=== PATIENT | male | born 1945 | race Caucasian/White ===

== ENCOUNTER 2018-09-10 08:08 | Inpatient (IN) | payer MEDICARE, OTHER ==
[2018-09-02 16:03] LABS: BASOPHILS % (AUTO) 0.8 % (0-1); EOSINOPHILS # (AUTO) 0.2 X10'3 (0-0.9); EOSINOPHILS % (AUTO) 5.2 % (0-6); LYMPHOCYTES % (AUTO) 22.4 % (21-51); MEAN CORPUSCULAR HEMOGLOBIN 29.9 PG (27.0-31.0); MEAN CORPUSCULAR HGB CONC 33.2 % (33.0-36.5); MEAN PLATELET VOLUME 7.2 FL (7.4-10.4); MONOCYTES # (AUTO) 0.4 X10'3 (0-0.9); MONOCYTES % (AUTO) 10.1 % (2-12); NEUTROPHILS # (AUTO) 2.7 X10'3 (1.8-7.7); NEUTROPHILS % (AUTO) 61.5 % (42-75); PRE OP HEMATOCRIT 37.3 % (42.0-52.0); PRE OP HEMOGLOBIN 12.4 g/dL (14.0-17.9); PRE OP PLATELET COUNT 291 X10'3 (140-440); RED BLOOD COUNT 4.15 X10'6 (4.70-6.10); RED CELL DISTRIBUTION WIDTH 14.4 % (11.5-14.5)
[2018-09-02 16:13] LABS: ALBUMIN 3.8 G/DL (3.4-5.0); ALBUMIN/GLOBULIN RATIO 1.3 (1.1-1.5); ALKALINE PHOSPHATASE 75 IU/L (46-116); BLOOD UREA NITROGEN 20 MG/DL (7-18); BUN/CREATININE RATIO 17.2 (5.4-32.0); CHLORIDE 104 MMOL/L (99-107); CREATININE 1.16 MG/DL (0.60-1.10); PRE OP ALT 22 U/L (30-65); PRE OP ANION GAP 7 (8-16); PRE OP AST 23 U/L (10-37); PRE OP BILIRUB, TOTAL 0.4 MG/DL (0.0-1.0); PRE OP GLUCOSE 93 MG/DL (70-104); PRE OP POTASSIUM 4.1 MMOL/L (3.4-5.1); PRE OP SODIUM 139 MMOL/L (135-145); TOTAL CARBON DIOXIDE 27.9 MMOL/L (24-32); TOTAL PROTEIN 6.8 G/DL (6.4-8.2); eGFR 62 ML/MIN
[~2018-09-10] VITALS: Ht 182.9 cm; Wt 84.1 kg
[2018-09-10] VITALS (19 sets, daily range): BP systolic 86–126; BP diastolic 45–73
[~2018-09-10 08:08] MED LIST: OMEP20TA23 PO; acetaminophen 325mg tablet PO ONE; cefazolin/dext.iso 2gm/50ml 50 ML IV ONE; famotidine 20mg tablet PO ONE; gabapentin 300mg capsule PO ONE; metoclopramide 5 mg/ml inj IV ONE; oxyCODONE SR 10mg (sust. release) tab PO ONE; ringers solution, lacted 1,000 ML IV SCH; tranexamic acid inj. 1,000 MG in normal saline 100ml IV soln 90 ML IV ONE; vancomycin inj 1,500 MG in normal saline 300ml IV soln IV ONE
[2018-09-10] MEDS ORDERED: LIDOcaine 1% (10mg/ml) 2ml vial ONE (08:26)
[2018-09-10] MEDS ORDERED: ROPIVAcaine inj 200 MG, epiNEPHrine inj 0.6 MG, morphine 10mg/ml inj. 5 MG in normal sa... IU ONE (10:10)
[2018-09-10] MEDS ORDERED: ketorolac trometh. 30mg/ml inj. ONE (10:37)
[2018-09-10] MEDS ORDERED: vancomycin 1,000mg inj ONE (10:38)
[2018-09-10] MEDS ORDERED: ROPIVAcaine 0.5% (5mg/ml) 30ml vial ONE (11:06)
[2018-09-10] MEDS ORDERED: cloNIDine hcl/PF 100mcg/ml inj ONE (11:06)
[2018-09-10] MEDS ORDERED: tetracaine 1% (10mg/ml) pres. free inj. ONE (11:08)
[2018-09-10] MEDS ORDERED: fentaNYL/PF 50MCG/1 ML 2ML syringe ONE (11:12)
[2018-09-10] MEDS ORDERED: MIDAZolam 5mg/5ml vial ONE (11:12)
[2018-09-10] MEDS ORDERED: BUPIVAcaine/dex-water/PF 7.5 mg/ml 2ml ampul ONE (11:15)
[2018-09-10] MEDS ORDERED: ePHEDrine 50MG/ML INJ. ONE (11:32)
[2018-09-10] MEDS ORDERED: Thrombin (Bovine) 5,000 unit vial TP ONE (12:22)
[2018-09-10] MEDS ORDERED: ringers solution, lacted 1,000 ML IV SCH (12:23)
[2018-09-10] MEDS ORDERED: morphine 4 MG/ML inj SYRINge IV PRN ×2 (12:25)
[2018-09-10] MEDS ORDERED: ondansetron/PF 4mg/2ml inj IV PRN ×2 (12:25→14:15)
[2018-09-10] MEDS ORDERED: meperidine/PF 25mg/ml syringe IV PRN ×3 (12:25)
[2018-09-10] MEDS ORDERED: proCHLORperazine 10 MG/2 ml inj IV PRN (12:25)
[2018-09-10] MEDS ORDERED: propofol inj 20 ML IV ONE (13:03)
[2018-09-10] MEDS ORDERED: HYDROmorphone 1 mg/ml syringe IV PRN ×2 (14:15)
[2018-09-10] MEDS ORDERED: magnesium hydroxide 30ml (MOM) UD suspension PO PRN (14:15)
[2018-09-10] MEDS ORDERED: bisacodyl 10mg suppository rectal RC PRN (14:15)
[2018-09-10] MEDS ORDERED: acetaminophen 325mg tablet PO PRN (14:15)
[2018-09-10] MEDS ORDERED: diphenhydrAMINE 25mg capsule PO PRN ×2 (14:15)
[2018-09-10] MEDS: ceFAZolin 1GM/D5W- ADD-VANTAGE 50 ML IV SCH (16:46)
[2018-09-10] MEDS: potassium cl 20mEq in 1/2 NS 1,000 ML IV SCH ×2 (16:46→20:47)
[2018-09-10] MEDS ORDERED: NORMAL SALINE IV ONE (17:15)
[2018-09-10] MEDS ORDERED: TRANEXAMIC ACID IV ONE (17:15)
[2018-09-10] MEDS ORDERED: vancomycin/NS 1 GM ADD-VANTAGE 250 ML IV SCH (20:00)
[2018-09-10] MEDS: sennosides 8.6mg tablet PO SCH (20:34)
[2018-09-10] MEDS: acetaminophen 325mg tablet PO SCH (20:35)
[2018-09-10] MEDS: gabapentin 300mg capsule PO SCH (20:35)
[2018-09-11] MEDS: ceFAZolin 1GM/D5W- ADD-VANTAGE 50 ML IV SCH (00:05)
[2018-09-11 02:00] VITALS: BP 105/51
[2018-09-11] MEDS: oxyCODONE IR 5mg (immed. release) tablet PO PRN ×5 (02:10→23:08)
[2018-09-11] MEDS: acetaminophen 325mg tablet PO SCH ×4 (02:11→20:15)
[2018-09-11 06:07] LABS: BASOPHILS % (AUTO) 0 % (0-1); EOSINOPHILS # (AUTO) 0.1 X10'3 (0-0.9); HEMATOCRIT 29.6 % (42.0-52.0); HEMOGLOBIN 9.8 g/dl (14.0-17.9); LYMPHOCYTES # (AUTO) 0.6 X10'3 (1.1-4.8); LYMPHOCYTES % (AUTO) 7.7 % (21-51); MEAN CORPUSCULAR HEMOGLOBIN 30.1 PG (27.0-31.0); MEAN CORPUSCULAR HGB CONC 33.2 % (33.0-36.5); MEAN CORPUSCULAR VOLUME 90.5 FL (78-98); MEAN PLATELET VOLUME 7.1 FL (7.4-10.4); MONOCYTES # (AUTO) 0.6 X10'3 (0-0.9); MONOCYTES % (AUTO) 7.2 % (2-12); NEUTROPHILS # (AUTO) 6.9 X10'3 (1.8-7.7); NEUTROPHILS % (AUTO) 84.1 % (42-75); PLATELET COUNT 228 X10'3 (140-440); RED BLOOD COUNT 3.27 X10'6 (4.70-6.10); RED CELL DISTRIBUTION WIDTH 13.6 % (11.5-14.5); WHITE BLOOD COUNT 8.2 X10'3 (4.5-11.0)
[2018-09-11 06:12] LABS: ANION GAP 8 (8-16); CHLORIDE 102 MMOL/L (99-107); POTASSIUM 4.5 MMOL/L (3.5-5.1); SODIUM 136 MMOL/L (135-145); TOTAL CARBON DIOXIDE 25.7 MMOL/L (24-32)
[2018-09-11] MEDS: enoxaparin 40mg/0.4ml syringe SQ SCH (07:22)
[2018-09-11] MEDS: gabapentin 300mg capsule PO SCH ×3 (07:24→20:15)
[2018-09-11] MEDS: pantoprazole 40mg Tablet.DR PO SCH (07:24)
[2018-09-11] MEDS: potassium cl 20mEq in 1/2 NS 1,000 ML IV SCH ×3 (07:29→20:12)
[2018-09-11 08:11] VITALS: BP 116/53
[2018-09-11 10:44] VITALS: BP 89/42
[2018-09-11 14:00] VITALS: BP 110/46
[2018-09-11 18:00] VITALS: BP 120/52
[2018-09-11] MEDS: celeCOXIB 100mg capsule PO SCH (20:14)
[2018-09-11] MEDS: sennosides 8.6mg tablet PO SCH (20:15)
[2018-09-11 22:00] VITALS: BP 100/51
[2018-09-12] MEDS: acetaminophen 325mg tablet PO SCH ×2 (02:20→07:40)
[2018-09-12] MEDS: oxyCODONE IR 5mg (immed. release) tablet PO PRN ×3 (04:06→11:30)
[2018-09-12 06:00] VITALS: BP 104/54
[2018-09-12 06:49] LABS: BASOPHILS % (AUTO) 0.2 % (0-1); EOSINOPHILS # (AUTO) 0.1 X10'3 (0-0.9); EOSINOPHILS % (AUTO) 1.2 % (0-6); HEMATOCRIT 25.4 % (42.0-52.0); HEMOGLOBIN 8.7 g/dl (14.0-17.9); LYMPHOCYTES # (AUTO) 0.5 X10'3 (1.1-4.8); LYMPHOCYTES % (AUTO) 7.7 % (21-51); MEAN CORPUSCULAR HEMOGLOBIN 30.5 PG (27.0-31.0); MEAN CORPUSCULAR HGB CONC 34.1 % (33.0-36.5); MEAN CORPUSCULAR VOLUME 89.4 FL (78-98); MEAN PLATELET VOLUME 7.3 FL (7.4-10.4); MONOCYTES # (AUTO) 0.8 X10'3 (0-0.9); MONOCYTES % (AUTO) 11.7 % (2-12); NEUTROPHILS # (AUTO) 5.3 X10'3 (1.8-7.7); NEUTROPHILS % (AUTO) 79.2 % (42-75); PLATELET COUNT 190 X10'3 (140-440); RED BLOOD COUNT 2.84 X10'6 (4.70-6.10); RED CELL DISTRIBUTION WIDTH 13.7 % (11.5-14.5); WHITE BLOOD COUNT 6.7 X10'3 (4.5-11.0)
[2018-09-12] MEDS: gabapentin 300mg capsule PO SCH (07:39)
[2018-09-12] MEDS: celeCOXIB 100mg capsule PO SCH (07:40)
[2018-09-12] MEDS: pantoprazole 40mg Tablet.DR PO SCH (07:40)
[2018-09-12] MEDS: enoxaparin 40mg/0.4ml syringe SQ SCH (07:41)
[2018-09-12 10:00] VITALS: BP 98/50
[2018-09-12] MEDS ORDERED: acetaminophen 325mg tablet PO PRN (14:15)
== END 2018-09-12 14:10 | disposition home or self-care (01) | DRG 470 ==
LOC: PAS IN 08:08 → EDSTATUS 11:30 → ORTHO 4S 16:25
PROVIDERS: ADMIT Orthopaedic Surgery; ATTEND Orthopaedic Surgery
PROC: 3E0T3BZ Introduction of Anesthetic Agent into Peripheral Nerves and Plexi, Percutaneous Approach (ICD-10-PCS; 2018-09-10)
PROC: 8E0YXCZ Robotic Assisted Procedure of Lower Extremity (ICD-10-PCS; 2018-09-10)
PROC: 0QPH04Z Removal of Internal Fixation Device from Left Tibia, Open Approach (ICD-10-PCS; 2018-09-10)
PROC: 0SRD069 Replacement of Left Knee Joint with Oxidized Zirconium on Polyethylene Synthetic Substitute, Cemented, Open Approach (ICD-10-PCS; principal; 2018-09-10 11:14)
DX: M17.12 Unilateral primary osteoarthritis, left knee (principal); D62 Acute posthemorrhagic anemia; E78.5 Hyperlipidemia, unspecified; G47.30 Sleep apnea, unspecified; J45.909 Unspecified asthma, uncomplicated; K21.9 Gastro-esophageal reflux disease without esophagitis; Z79.899 Other long term (current) drug therapy
CPT/HCPCS: 36415; 73590; 80051; 80053; 85025; 87070; 93005; 97110; 97116; 97161; 97530; A6455; A7000; C1713; C1758; C1776; G0378; J0171; J0690; J0735; J1170; J1650; J1885; J2175; J2250; J2270; J2405; J2704; J2765; J2795; J3010; J3370; J3490; J7030; J7120

== ENCOUNTER 2019-09-09 06:26 | Inpatient (IN) | payer MEDICARE, OTHER ==
[2019-09-01 16:41] LABS: BASOPHILS % (AUTO) 0.9 % (0-1); EOSINOPHILS # (AUTO) 0.3 X10'3 (0-0.9); EOSINOPHILS % (AUTO) 4.8 % (0-6); LYMPHOCYTES # (AUTO) 1.1 X10'3 (1.1-4.8); LYMPHOCYTES % (AUTO) 19.1 % (21-51); MEAN CORPUSCULAR HEMOGLOBIN 31.3 PG (27.0-31.0); MEAN CORPUSCULAR HGB CONC 34.4 g/dL (33.0-36.5); MONOCYTES # (AUTO) 0.5 X10'3 (0-0.9); MONOCYTES % (AUTO) 9.7 % (2-12); NEUTROPHILS # (AUTO) 3.7 X10'3 (1.8-7.7); NEUTROPHILS % (AUTO) 65.5 % (42-75); PRE OP HEMATOCRIT 39.1 % (42.0-52.0); PRE OP HEMOGLOBIN 13.5 g/dL (14.0-17.9); PRE OP PLATELET COUNT 272 X10'3 (140-440)
[2019-09-01 16:50] LABS: ALBUMIN 4.4 G/DL (3.4-5.0); ALBUMIN/GLOBULIN RATIO 1.4 (1.1-1.5); ALKALINE PHOSPHATASE 70 IU/L (46-116); BLOOD UREA NITROGEN 27 MG/DL (7-18); CALCIUM 9.5 MG/DL (8.5-10.1); CHLORIDE 102 MMOL/L (99-107); CREATININE 1.35 MG/DL (0.60-1.10); PRE OP ALT 26 U/L (30-65); PRE OP ANION GAP 12 (8-16); PRE OP AST 29 U/L (10-37); PRE OP BILIRUB, TOTAL 0.6 MG/DL (0.0-1.0); PRE OP GLUCOSE 84 MG/DL (70-104); PRE OP POTASSIUM 4.2 MMOL/L (3.4-5.1); PRE OP SODIUM 138 MMOL/L (135-145); TOTAL CARBON DIOXIDE 24.1 MMOL/L (24-32); TOTAL PROTEIN 7.6 G/DL (6.4-8.2); eGFR 52 ML/MIN
[2019-09-09] VITALS (16 sets, daily range): BP systolic 78–146; BP diastolic 41–78
[~2019-09-09] VITALS: Ht 182.9 cm; Wt 88.6 kg
[~2019-09-09 06:26] MED LIST changes: +Cefazolin 2GM/100ML NS IVPB 100 ML IV ONE; +NO HOME MEDS; -OMEP20TA23 PO; +VANCOMYCIN INJ 1000 MG in NORMAL SALINE 250ml IV.SOLN IV ONE; -acetaminophen 325mg tablet PO ONE; +cefazolin/dext.iso 2gm/100ml 100 ML IV ONE; -cefazolin/dext.iso 2gm/50ml 50 ML IV ONE; +famotidine 10mg tablet PO ONE; -gabapentin 300mg capsule PO ONE; -metoclopramide 5 mg/ml inj IV ONE; -oxyCODONE SR 10mg (sust. release) tab PO ONE; +tranexamic acid inj. 1,000 MG in normal saline 100 ML IV ONE; -tranexamic acid inj. 1,000 MG in normal saline 100ml IV soln 90 ML IV ONE; -vancomycin inj 1,500 MG in normal saline 300ml IV soln IV ONE
[2019-09-09] MEDS ORDERED: LIDOcaine 1% (10mg/ml) 2ml vial ONE (06:41)
[2019-09-09] MEDS ORDERED: vancomycin 1,000mg inj ONE (07:47)
[2019-09-09] MEDS ORDERED: ceFAZolin 1000mg inj ONE (07:47)
[2019-09-09] MEDS ORDERED: fentaNYL/PF 50MCG/1 ML 2ML syringe ONE ×2 (08:26→11:48)
[2019-09-09] MEDS ORDERED: MIDAZolam 5mg/5ml vial ONE (08:26)
[2019-09-09] MEDS ORDERED: sevoflurane 250ml liquid IH ONE (09:05)
[2019-09-09] MEDS ORDERED: ringers solution, lacted 1,000 ML IV SCH (10:39)
[2019-09-09] MEDS ORDERED: ROPIVAcaine 0.2%/PF PUMP/bolus 550 ML INTERSCALE SCH (10:39)
[2019-09-09] MEDS ORDERED: morphine 4 MG/ML inj SYRINge IV PRN (10:40)
[2019-09-09] MEDS ORDERED: ROPIVAcaine 0.2% (10 MG/5 ML) BOLUS INJECTION INTERSCALE PRN (10:40)
[2019-09-09] MEDS ORDERED: ondansetron/PF 4mg/2ml inj IV PRN ×2 (10:40→12:15)
[2019-09-09] MEDS ORDERED: HYDROmorphone inj. 0.5 MG/0.5 ML DISP.SYRIN IV PRN ×2 (10:40→12:15)
[2019-09-09] MEDS ORDERED: LIDOcaine 1%/PF 5ML 10 MG/ML VIAL ONE (11:14)
[2019-09-09] MEDS ORDERED: propofol inj 20 ML IV ONE (11:14)
[2019-09-09] MEDS ORDERED: ePHEDrine 50MG/ML INJ. ONE (11:14)
[2019-09-09] MEDS ORDERED: succinylcholine 20mg/ml inj IV ONE (11:14)
[2019-09-09] MEDS ORDERED: dexamethasone sod phosphate 4mg/ml inj. ONE (11:14)
[2019-09-09] MEDS ORDERED: ondansetron/PF 4mg/2ml inj ONE (11:14)
[2019-09-09] MEDS ORDERED: phenylephrine 10mg/ml inj. ONE (11:14)
--- NOTE | 2019-09-09 12:10 | NUR ---
Received from OR via BED, accompanied by Anesthesiologist -DR BRANHAM-- and report given by Anesthesiolgist. PATIENT A&OX4, DENIES PAIN, V/S WNL, NEUROVASCULAR CHECKS INTACT, 18G PIV LUE, SCD ON, DRESSING TO RIGHT SHOULDER CDI WITH SLING AND COLD POWDER PACK AND ON QUE PUMP AT 4ML/HR
[2019-09-09] MEDS ORDERED: oxyCODONE IR 5mg (immed. release) tablet PO PRN ×2 (12:15)
[2019-09-09] MEDS ORDERED: magnesium hydroxide 30ml (MOM) UD suspension PO PRN (12:15)
[2019-09-09] MEDS ORDERED: HYDROmorphone 1 mg/ml syringe IV PRN (12:15)
[2019-09-09] MEDS ORDERED: acetaminophen 325mg tablet PO PRN (12:15)
[2019-09-09] MEDS ORDERED: bisacodyl 10mg suppository rectal RC PRN (12:15)
[2019-09-09] MEDS ORDERED: diphenhydrAMINE 25mg capsule PO PRN ×2 (12:15)
--- NOTE | 2019-09-09 12:50 | NUR ---
PATIENT A&OX4, DENIES PAIN, V/S WNL, NEUROVASCULAR CHECKS INTACT, 18G PIV LUE, SCD ON, DRESSING TO RIGHT SHOULDER CDI WITH ABDUCTER WEDGE SLING AND COLD POWDER PACK AND ON QUE PUMP AT 4ML/HR. PATIENT TAKEN TO ORTHO WITH ALL BELONGINGS AND HOOKED UP TO MONITORS IN ROOM AND REPORT GIVEN TO RN WHO HAS TAKEN OVER PATIENT CARE
[2019-09-09] MEDS: gabapentin 300mg capsule PO SCH ×2 (13:26→21:15)
[2019-09-09] MEDS: acetaminophen 325mg tablet PO SCH ×2 (14:12→21:14)
[2019-09-09] MEDS ORDERED: tranexamic acid inj. 900 MG in normal saline 100ml IV soln 100 ML IV ONE (15:30)
[2019-09-09] MEDS: ceFAZolin 1GM/D5W- ADD-VANTAGE 50 ML IV SCH (15:54)
--- NOTE | 2019-09-09 18:27 | NUR ---
gave report to cachorro freeman
[2019-09-09] MEDS ORDERED: vancomycin/NS 1 GM ADD-VANTAGE 250 ML IV SCH (20:00)
[2019-09-09] MEDS: potassium cl 20mEq in 1/2 NS 1,000 ML IV SCH ×2 (20:11→21:15)
[2019-09-09] MEDS ORDERED: sennosides 8.6mg tablet PO SCH (21:00)
[2019-09-10] MEDS: ceFAZolin 1GM/D5W- ADD-VANTAGE 50 ML IV SCH (00:22)
[2019-09-10] MEDS: acetaminophen 325mg tablet PO SCH ×2 (02:44→07:42)
[2019-09-10 05:57] LABS: BASOPHILS % (AUTO) 0.3 % (0-1); EOSINOPHILS # (AUTO) 0.1 X10'3 (0-0.9); EOSINOPHILS % (AUTO) 0.6 % (0-6); HEMOGLOBIN 11.3 g/dl (14.0-17.9); LYMPHOCYTES # (AUTO) 0.9 X10'3 (1.1-4.8); LYMPHOCYTES % (AUTO) 9.8 % (21-51); MEAN CORPUSCULAR HEMOGLOBIN 31.3 PG (27.0-31.0); MEAN CORPUSCULAR HGB CONC 34.3 g/dL (33.0-36.5); MEAN CORPUSCULAR VOLUME 91.1 FL (78-98); MEAN PLATELET VOLUME 7.4 FL (7.4-10.4); MONOCYTES # (AUTO) 0.8 X10'3 (0-0.9); NEUTROPHILS # (AUTO) 7.3 X10'3 (1.8-7.7); NEUTROPHILS % (AUTO) 80.3 % (42-75); PLATELET COUNT 223 X10'3 (140-440); RED BLOOD COUNT 3.63 X10'6 (4.70-6.10); RED CELL DISTRIBUTION WIDTH 13.9 % (11.5-14.5); WHITE BLOOD COUNT 9.1 X10'3 (4.5-11.0)
[2019-09-10 06:00] VITALS: BP 120/57
--- NOTE | 2019-09-10 06:17 | NUR ---
REPORT GIVEN TO PAVAN CORADO
--- NOTE | 2019-09-10 06:18 | NUR ---
received report from cachorro freeman
[2019-09-10 07:02] LABS: ANION GAP 8 (8-16); CHLORIDE 105 MMOL/L (99-107); POTASSIUM 4.1 MMOL/L (3.5-5.1); SODIUM 137 MMOL/L (135-145)
[2019-09-10] MEDS: gabapentin 300mg capsule PO SCH (07:42)
[2019-09-10] MEDS: potassium cl 20mEq in 1/2 NS 1,000 ML IV SCH (07:46)
[2019-09-10] MEDS ORDERED: aspirin 325mg tablet PO SCH (08:30)
[2019-09-10] MEDS ORDERED: ASPI-1 PO (08:47)
[2019-09-10 09:57] VITALS: BP 113/52
--- NOTE | 2019-09-10 10:50 | NUR ---
pt d/c with instructions, understanding of instructions, and w/all belongings walking out accompanied by friend to go home and f/u w/surgeon
[2019-09-10] MEDS ORDERED: celeCOXIB 100mg capsule PO SCH (20:00)
[2019-09-11] MEDS ORDERED: acetaminophen 325mg tablet PO PRN (12:15)
== END 2019-09-10 10:50 | disposition home or self-care (01) | DRG 483 ==
LOC: PAS IN 06:26 → EDSTATUS 08:30 → ORTHO 4S 13:00
PROVIDERS: ADMIT Orthopaedic Surgery; ATTEND Orthopaedic Surgery
PROC: 0RRJ00Z Replacement of Right Shoulder Joint with Reverse Ball and Socket Synthetic Substitute, Open Approach (ICD-10-PCS; principal; 2019-09-09 09:05)
DX: M19.011 Primary osteoarthritis, right shoulder (principal); D62 Acute posthemorrhagic anemia; I25.10 Atherosclerotic heart disease of native coronary artery without angina pectoris; K21.9 Gastro-esophageal reflux disease without esophagitis; Z95.0 Presence of cardiac pacemaker
CPT/HCPCS: 36415; 73020; 80051; 80053; 82948; 85025; 87081; 93005; 97110; 97116; 97161; 97530; A4215; A4565; A4618; A7000; C1776; C9250; G0378; J0330; J0690; J1100; J2001; J2250; J2370; J2405; J2704; J2795; J3010; J3370; J3480; J7120